=== PATIENT | male | born 1945 | race Caucasian/White ===

== ENCOUNTER → 2016-12-03 | Outpatient (CLI) | payer OTHER ==
[~2016-12-03] MED LIST: AMLODIPINE BESY10 MG PO; LOSARTAN-HCTZ1 EAC2 PO; LYRICA25 MG PO; OMEPRAZOLE20 MG PO; OS-CAL 500+D31 EACH PO; PRAVASTATIN SOD80 MG PO; SERTRALINE HCL50 MG PO; VITAMIN D32000 UNI1 PO
== END | disposition home or self-care (01) ==
LOC: NUC 09:36
DX: C61 Malignant neoplasm of prostate (principal)
CPT/HCPCS: 78306; A9503

== ENCOUNTER → 2018-03-22 | Outpatient (CLI) | payer OTHER | END | disposition home or self-care (01) | LOC: CDC 12:29 | DX: Z01.810 Encounter for preprocedural cardiovascular examination (principal); R31.0 Gross hematuria; I44.0 Atrioventricular block, first degree | CPT/HCPCS: 93000 ==